=== PATIENT | female | born 1960 | race Caucasian/White ===

== ENCOUNTER 2017-06-04 12:00 | Day surgery (SDC) | payer OTHER ==
[2017-06-04] MEDS ORDERED: FLUMAZENIL 0.5 MG/5 ML MDV IVP ONE (12:11)
[2017-06-04] MEDS ORDERED: NALOXONE HCL 0.4 MG/ML INJ ONE (12:11)
[2017-06-04] MEDS ORDERED: MIDAZOLAM 2 MG/2 ML VIAL ONE ×2 (12:11→14:26)
[2017-06-04] MEDS ORDERED: fentaNYL 100 MCG/2 ML INJ ONE ×2 (12:12→14:26)
[2017-06-04] MEDS ORDERED: MIDAZOLAM 2 MG/2 ML VIAL IVP PRN (12:43)
[2017-06-04] MEDS ORDERED: FLUMAZENIL 0.5 MG/5 ML MDV IVP PRN (12:43)
[2017-06-04] MEDS ORDERED: MEPERIDINE 25 MG/ML SYR IVP PRN (12:43)
[2017-06-04] MEDS ORDERED: NALOXONE HCL 0.4 MG/ML INJ IVP PRN (12:43)
[2017-06-04] MEDS ORDERED: fentaNYL 100 MCG/2 ML INJ IVP PRN (12:43)
[2017-06-04] MEDS ORDERED: NS 1,000 ML IV SCH (12:45)
[2017-06-04 12:58] VITALS: TEMP 97.5
--- NOTE | 2017-06-04 13:53 | PDPROPOC ---
Sedation Plan of Care Sedation Plan of Care: vital signs stable, mental status noted, patient educated of risks, benefits, alternatives, patient can tolerate sedation ASA Classification: ASA 1 Planned drugs: fentanyl, midazolam Mallampati Score: Class 2 Mallampati Reference Image: Patient passed 3-3-2 rule?: Yes
--- NOTE | 2017-06-04 13:55 | PDGENHP ---
History & Physical Chief Complaint: NECK PAIN RADIATING TO RT SECOND AND FIRST DIGIT History of Present Illness: HAS HAD HAD INJECTION ON LT BEFORE, WHICH HELPED Pertinent Past, Social, Family History: N/A; ANTERIOR C5/6 SURGERY Relevant Physical Exam: N/A Cardiorespiratory Assessment: RRR,CTA
[2017-06-04] MEDS ORDERED: IOPAMIDOL (ISOVUE-M 300) 15 ML VIAL ONE (14:52)
[2017-06-04] MEDS ORDERED: TRIAMCINOLONE ACETONIDE 200 MG/5 ML MDV IM ONE (14:52)
[2017-06-04] MEDS ORDERED: LIDOCAINE 1% 300 MG/30 ML SDV ONE (14:52)
[2017-06-04 15:01] VITALS: PULSE 58
[2017-06-04] MEDS ORDERED: ONDANSETRON 4 MG/2 ML VIAL IVP PRN (15:12)
--- NOTE | 2017-06-04 15:13 | PDRADPN ---
Radiology Procedure Note Date of Procedure: 06/04/17 Radiologist: Cami Andre Anesthesia: IV Sedation (FENTANYL AND VERSED) Pre-op Diagnosis: NECK PAIN Post-op Diagnosis: NECK PAIN Indication: RT ARM REDICULOPATHY Procedure: c6 RT TFESI Finding(s): SEE REPORT Inf/Abcess present in the surg proc area at time of surgery?: No Complications: NONE
[2017-06-04 15:41] VITALS: BP 102/73; RESP 12; O2SAT 95
== END 2017-06-04 15:53 | disposition home or self-care (01) ==
LOC: FIMAGING 12:00
PROVIDERS: ATTEND Neurological Surgery
PROC: 3E0S3BZ Introduction of Anesthetic Agent into Epidural Space, Percutaneous Approach (ICD-10-PCS; principal; 2017-06-04 16:45)
PROC: 3E0S33Z Introduction of Anti-inflammatory into Epidural Space, Percutaneous Approach (ICD-10-PCS; principal; 2017-06-04 16:45)
DX: M47.22 Other spondylosis with radiculopathy, cervical region (principal); Z96.698 Presence of other orthopedic joint implants
CPT/HCPCS: J2250; J2310; J3010; J3301; Q9967